=== PATIENT | female | born 1940 | race Caucasian/White ===

== ENCOUNTER → 2016-11-23 | Outpatient (CLI) | payer MEDICARE, OTHER ==
--- NOTE | 2016-11-27 21:03 | SLEEPCENT ---
DATE OF PROCEDURE: 11/23/2016 ORDERED BY: Shrery Ferguson Nocturnal polysomnography was performed due to concern for the obstructive sleep apnea syndrome in this patient with a history of excessive somnolence and snoring, and a comorbidity of hypertension and atherosclerotic vascular disease. 7 hours and 50 minutes of data were reviewed. There were 338 minutes of sleep identified. Sleep latency was normal to short at 12.5 minutes. Rapid eye movement (REM) latency was normal at 99 minutes. Sleep architecture showed fragmentation with a period of wake between 2:30 and 3:15. There were three REM periods appreciated. Overall sleep efficiency was 72.9% with a reduction in REM time. The patient's EKG showed a paced rhythm with an average heart rate of 65 beats per minute. EEG showed normal waveforms for awake and sleep. There were 115 respiratory events identified of 10 seconds in duration or greater for an apnea-hypopnea index of 20.4. The events were primarily obstructive, not exclusive to sleep stage, more frequent but not exclusive to supine posture. Events were associated with arousal 13.3 times per hour and oxygen desaturations into the 70s. There was also some limb activity noted with 4-5 trains of 30 events. Limb movement arousal index was 12.6. Some snoring was also appreciated. Remaining measures of sleep physiology were normal. IMPRESSION: 1. Moderately severe obstructive sleep apnea syndrome (G47.33). Apnea-hypopnea index of 20.4. 2. Periodic limb movement disorder (G47.61). Limb movement arousal index 12.6. RECOMMENDATION: The patient should be encouraged to return to the sleep disorder center for pressure therapy. In the interim, alcohol and sedative avoidance should be practiced and caution exercised during the operation of motor vehicles. Pending response to pressure therapy, interventions to reduce the frequency of arousals from limb activity may also be helpful. Copy To: Dr. Diamond
== END ==
LOC: M SLEEP 19:34
PROVIDERS: ATTEND Nurse Practitioner Adult Health
DX: G47.00 Insomnia, unspecified (principal)

== ENCOUNTER → 2016-12-13 | Outpatient (CLI) | payer MEDICARE, OTHER ==
--- NOTE | 2016-12-14 18:26 | SLEEPCENT ---
DATE OF PROCEDURE: 12/13/2016 ORDERED BY: Sherry Ferguson Nocturnal polysomnography was performed for the titration of pressure therapy in this patient with obstructive sleep apnea syndrome. Apnea hypopnea index of 20.4. For testing the patient was fit with a [employer]Med Quattro full face mask of small size. 4 cm of water pressure were applied to the circuit and the lights were extinguished. 7 hours and 51 minutes of data were reviewed. There were 362 minutes of sleep identified. Sleep latency was short at 9.5 minutes. Rapid eye movement (REM) latency was achieved at 265 minutes. Overall sleep architecture did improve late in the study with optimal pressure therapy. Sleep efficiency was 77.8%. Patient's EKG showed a paced rhythm with an average heart rate of 60 beats per minute. EEG showed normal wave forms for wake and sleep. Respiratory events were best palliated with CPAP at a pressure of +6. On this occasion limb movement arousals were again seen with a limb movement arousal index of 17.9. IMPRESSION: 1. Severe obstructive sleep apnea syndrome (G47.33). 2. Periodic limb movements (G47.61). RECOMMENDATIONS: Nightly use of pressure therapy at 6 cm of water is sufficient to address patients respiratory event. If sleep symptoms persist interventions to reduce the frequencies of arousals from limb activity may be helpful.
== END ==
LOC: M SLEEP 20:00
PROVIDERS: ATTEND Nurse Practitioner Adult Health
DX: G47.33 Obstructive sleep apnea (adult) (pediatric) (principal)

== ENCOUNTER 2018-10-27 12:13 | Day surgery (SDC) | payer MEDICARE, OTHER ==
[~2018-10-27] VITALS: Ht 165.1 cm; Wt 65.3 kg
--- NOTE | 2018-10-27 12:50 | REP ---
Clinical: Acute chest pain . Comparison: None . Findings: The mediastinum and cardiac silhouette are stable and within normal limits for portable technique. The lung james demonstrate chronic-appearing interstitial changes and calcified granuloma in the left base. No acute consolidation, effusion, or pneumothorax. Skeletal structures are intact. Dual lead pacemaker noted. Impression: No acute cardiopulmonary process appreciated. Electronically Signed by Augie Kim MD 10/27/2018 12:41 P
[2018-10-27 12:57] LABS: BASO # 0.1 10^3/uL (0.0-0.2); BASO % 1.1 % (0.0-1.0); EOS # 0.1 10^3/uL (0.0-0.5); EOS % 2.3 % (0.0-3.0); HEMATOCRIT 39.9 % (36.0-47.0); HEMOGLOBIN 13.8 g/dl (12.0-15.5); LYMPH # 1.8 10^3/uL (1.5-5.0); LYMPH % 28.7 % (24.0-44.0); MEAN CORPUSCULAR HEMOGLOBIN 34.2 pg (27.0-33.0); MEAN CORPUSCULAR HGB CONC 34.6 g/dl (32.0-36.5); MEAN CORPUSCULAR VOLUME 98.8 fl (80.0-96.0); MONO # 0.7 10^3/uL (0.0-0.8); MONO % 11.3 % (0.0-5.0); NEUTROPHILS # 3.4 10^3/uL (1.5-8.5); NEUTROPHILS % 56.4 % (36.0-66.0); PLATELET COUNT, AUTOMATED 165 10^3/uL (150-450); RED BLOOD COUNT 4.04 10^6/uL (4.00-5.40); WHITE BLOOD COUNT 6.1 10^3/uL (4.0-10.0)
[2018-10-27] MEDS ORDERED: ELIQ2.5T PO (13:08)
[2018-10-27] MEDS ORDERED: ASCO500T PO (13:08)
[2018-10-27] MEDS ORDERED: POTA1TAB23 PO (13:08)
[2018-10-27] MEDS ORDERED: LABE200T32 PO (13:08)
[2018-10-27] MEDS ORDERED: COQ1200C3 PO (13:08)
[2018-10-27] MEDS ORDERED: HYDR12.55 PO (13:08)
[2018-10-27] MEDS ORDERED: SM M250T2 PO (13:08)
[2018-10-27] MEDS ORDERED: IRBE300T10 PO (13:08)
[2018-10-27] MEDS ORDERED: D200CAP3 PO (13:08)
[2018-10-27] MEDS ORDERED: PREG50CA PO (13:13)
[2018-10-27] MEDS ORDERED: CYCL10TA PO (13:13)
[2018-10-27] MEDS ORDERED: ROSU5TAB5 PO (13:14)
[2018-10-27] MEDS ORDERED: AMLO5TAB6 PO (14:04)
[2018-10-27 14:05] LABS: INR 1.02; PROTHROMBIN TIME 13.1 SECONDS (11.8-14.0)
[2018-10-27 14:06] LABS: PARTIAL THROMBOPLASTIN TIME 31.2 SECONDS (25.0-38.4)
[2018-10-27 14:12] LABS: BLOOD UREA NITROGEN 27 MG/DL (7-18); CALCIUM LEVEL 9.8 MG/DL (8.8-10.2); CARBON DIOXIDE LEVEL 29 MEQ/L (21-32); CHLORIDE LEVEL 103 MEQ/L (98-107); CK-MB VALUE MASS 7.8 NG/ML (<3.6); CPK CREATINE PHOSPHOKINASE 412 U/L (26-192); CREATININE FOR GFR 1.05 MG/DL (0.55-1.30); GLOMERULAR FILTRATION RATE 53.7 (>32); GLUCOSE, FASTING 106 MG/DL (70-100); MB/CK RELATIVE INDEX 1.89 (< OR =4); POTASSIUM SERUM 4.1 MEQ/L (3.5-5.1); SODIUM LEVEL 138 MEQ/L (136-145); TROPONIN I < 0.02 NG/ML (< 0.10)
[2018-10-27] MEDS ORDERED: LIDOCAINE 1% SDV INJ 30 ML VIAL As Ordered ONE (15:07)
[2018-10-27] MEDS ORDERED: VANCOMYCIN 1000 MG/20 ML VIAL (J3370) As Ordered ONE (15:31)
[2018-10-27] MEDS ORDERED: fentaNYL 100 MCG/2 ML INJECTION (J3010) As Ordered ONE (15:36)
[2018-10-27] MEDS ORDERED: propofoL 200 MG/20 ML VIAL As Ordered ONE (15:36)
[2018-10-27] MEDS ORDERED: MIDAZOLAM INJ 2 MG/2 ML VIAL (J2250) As Ordered ONE (15:37)
[2018-10-27] MEDS ORDERED: LIDOCAINE 2% INJ 100 MG/5 ML SDV (FOR ANES.) As Ordered ONE (15:37)
[2018-10-27] MEDS ORDERED: VANCOMYCIN HCL 1,000 MG, VIAL MATE ADAPTER 1 EACH in D5W 250 ML IV ONE ×2 (16:45→17:00)
[2018-10-27] MEDS ORDERED: MUPIROCIN 2% OINT 22 GM TUBE As Ordered ONE (17:27)
[2018-10-27] MEDS ORDERED: ONDANSETRON 4MG/2ML VIAL (J2405) As Ordered ONE (17:29)
[2018-10-27] MEDS ORDERED: KETOROLAC 60 MG/2 ML VIAL (J1885) As Ordered ONE (17:29)
--- NOTE | 2018-10-27 18:27 | RO ---
DATE OF PROCEDURE: 10/27/2018 PREPROCEDURE DIAGNOSIS: Pacemaker battery depletion. POSTPROCEDURE DIAGNOSIS: Pacemaker battery depletion. FINDINGS: Pacemaker battery depletion. PROCEDURE PERFORMED: Explantation of old [employer] pacemaker pulse generator and implantation of a new [employer] dual-chamber pacemaker pulse generator. SURGEON: Duran Shipley MD BORDER PATROL AGENT: None. ANESTHESIA: 1% lidocaine local anesthetic/monitored anesthetic care. SPECIMENS: Old dual-chamber pacemaker [employer] pulse generator. ESTIMATED BLOOD LOSS: Less than 5 mL. No blood products replaced. No drains. No complications. DESCRIPTION OF PROCEDURE: The patient was prepped and draped over the left pectoral region. 3M Iob[place] film was applied. Lidocaine 1% was used for local anesthetic. An incision was made over the existing pacemaker pulse generator about 1 to 1.5 cm below the original incision line using a #15 scalpel blade. Fine scissor dissection was then used to get down to and through the anterior capsule overlying the existing pacemaker pulse generator. The existing pacemaker pulse generator was then removed from the pocket, and the terminal pins were then removed by loosening the set screws. The leads were then tested via alligator clips and found to be satisfactory for old pacing leads. Next, the new pacemaker pulse generator was brought into the field, and the existing pacemaker lead terminal pins were plugged into their respective ports in the header and each one secured by tightening the set screws. The pacemaker pulse generator was then placed into the existing pacemaker pocket. The deep layer was closed using individual sutures consisting of #2-0 Vicryl and a few additional #3-0 Vicryl sutures were used to help close the more superficial layer. The skin was then closed using jules. Bactroban ointment was then applied over the incision followed by Telfa and a Bio-Occlusive dressing and then a light pressure dressing. The patient tolerated the procedure well without any immediate complications. Please see the device implant report for complete details on intraoperative data. The new pacemaker pulse generator implanted was a [employer] Assurity MRI model PM7380 with serial number [id number]. Device-based testing in the operating room via the new pacemaker pulse generator showed atrial capture threshold of 0.75 volts at 0.4 milliseconds with P wave amplitude of 4.0 millivolts and a lead impedance of 380 ohms. The device-based testing in the operating room via the new pacemaker pulse generator from the ventricle lead showed a capture threshold of 1.75 volts at 0.8 milliseconds with lead impedance of 660 ohms in bipolar configuration. No R waves because the patient had underlying asystole. The existing right atrial lead was a [employer] Tendril SDX, model 1688TC/52 cm with serial number [id number], originally implanted 07/10/2008. The existing right ventricle lead was a [employer] IsoFlex S, model 1646T/58 cm with serial number [id number], originally implanted 07/10/2008.
[2018-10-27 19:09] VITALS: BP 169/78
--- NOTE | 2018-10-28 07:05 | ECGEPIP ---
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
== END 2018-10-27 19:09 | disposition home or self-care (01) ==
LOC: M ED 12:13 → M SDC 12:14
PROVIDERS: ATTEND Internal Medicine Cardiovascular Disease
DX: Z45.010 Encounter for checking and testing of cardiac pacemaker pulse generator [battery] (principal); I10 Essential (primary) hypertension; D64.9 Anemia, unspecified; E78.49 Other hyperlipidemia; Z79.01 Long term (current) use of anticoagulants; Z79.899 Other long term (current) drug therapy; G47.30 Sleep apnea, unspecified; E03.9 Hypothyroidism, unspecified; Z88.8 Allergy status to other drugs, medicaments and biological substances; Z88.0 Allergy status to penicillin
CPT/HCPCS: 33228; 71045; 80048; 82550; 82553; 84484; 85025; 85610; 85730; 86850; 86900; 86901; 93005; 93041; 99285; C1785; J1885; J2250; J2405; J3010; J3370

== ENCOUNTER → 2021-09-26 | Outpatient (CLI) | payer MEDICARE, BC ==
[~2021-09-26] MED LIST: AMLO1TAB24 PO; ASCO500T PO; COQ1200C3 PO; CYCL-707 PO; D200CAP3 PO; ELIQ2.5T PO; HYDR12.55 PO; IRBE300T7 PO; ISOVUE-300 61% 5ML SYRINGE As Ordered ONE; LABE200T5 PO; LIDOCAINE 1% MDV 20ML VIAL As Ordered ONE; POTA1TAB23 PO; PREG50CA PO; ROSU5TAB5 PO; SM M250T2 PO
== END ==
LOC: M RADPRO 08:30
PROVIDERS: ATTEND Physician Assistant
DX: M23.221 Derangement of posterior horn of medial meniscus due to old tear or injury, right knee (principal); M23.251 Derangement of posterior horn of lateral meniscus due to old tear or injury, right knee; M17.11 Unilateral primary osteoarthritis, right knee
CPT/HCPCS: 27369; 73580; 73701; Q9967

== ENCOUNTER → 2024-12-12 | Outpatient (CLI) | payer MEDICARE, BC ==
[~2024-12-12] MED LIST changes: +E-Z-PAQUE 96% w/w SUSP 176 GM BTL As Ordered ONE; +IRBE300T25 PO; -IRBE300T7 PO; -ISOVUE-300 61% 5ML SYRINGE As Ordered ONE; -LIDOCAINE 1% MDV 20ML VIAL As Ordered ONE; -PREG50CA PO; +PREG50CA87 PO; +ROSU5TAB49 PO; -ROSU5TAB5 PO
== END ==
LOC: M RAD 09:06
PROVIDERS: ATTEND Internal Medicine Gastroenterology
DX: K92.2 Gastrointestinal hemorrhage, unspecified (principal)